=== PATIENT | female | born 1960 | race Caucasian/White ===

== ENCOUNTER → 2016-11-05 | Outpatient (CLI) | payer OTHER, MEDICAID ==
--- NOTE | 2016-11-05 17:08 | DX ---
Chest, PA and Lateral History: Possible sarcoidosis Comparison: None Findings: The patient is obese, which limits detection of interstitial lung disease. There is no foca l infiltrate or consolidation. Heart size and pulmonary vascularity are normal. There is no adenopath y or pulmonary nodule. There is no pleural effusion . Bones are unremarkable for age. Impression: Obesity limits sensitivity. No obvious evidence for sarcoidosis.
--- NOTE | 2016-11-05 18:09 | DX ---
2 Views Cervical Spine Reason for examination: Undifferentiated spondyloarthropathy. Findings: A fracture is not identified. There is mild reversal of the normal cervical curvature. Dege nerative changes are seen with disk space loss in vertebral body osteophytic lipping identified at C5 -C6 and C6-C7. Mild hypertrophic facet changes are also noted. Prevertebral soft tissues appear mariano l. Impression: 1. Degenerative changes with disk space loss and mild facet hypertrophy. 2. Reversal of the cervical curvature may reflect muscle spasm.
--- NOTE | 2016-11-05 18:23 | DX ---
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 Comparison: None available. Findings: Left: Prior ACL repair is noted. No fracture is identified. Alignment is normal. Minimal tricompartme ntal osteoarthritis is present with mild medial and lateral joint space narrowing. Patellar enthesoph yte is present at the insertion of the quadriceps tendon. There is no effusion. Right: No fracture is identified. Alignment is normal. Trace osteoarthritis is present with no signif icant joint space narrowing. There is no effusion. Impression: 1. Mild osteoarthritis in the left knee with medial and lateral joint space narrowing. 2. Minimal osteoarthritis in the right knee.
--- NOTE | 2016-11-05 18:31 | DX ---
Thoracic Spine, 2 views History: Pain, undifferentiated spondyloarthropathy M46.90 Findings: The patient is obese. AP view includes the thoracic spine down to the lower T10. The latera l view courses to the upper lumbar spine. Alignment is anatomic. There is mild thoracic disk space na rrowing between T6 and T10. No compression fracture is identified. Mineralization is normal. No laura nary erosions are identified. The anterior longitudinal ligament is not ossified. The right first rib has been partially resected. Impression: Mild degenerative change. No evidence for ankylosing spondylitis..
--- NOTE | 2016-11-05 18:33 | DX ---
Lumbar spine 2 views History: Undifferentiated spondyloarthropathy. Comparison: Thoracic spine same day. Findings: The study is limited by obesity and soft tissue beam attenuation. Mild leftward curvature o f the lumbar spine is present. AP alignment appears normal. No fracture is identified. Moderate verte bral spondylosis is present at L5-S1, with mild to moderate vertebral spondylosis at L4-L5, and mild vertebral spondylosis throughout the remainder of the lumbar spine. Mild facet hypertrophy is present from L4 through S1. Ventral hernia repair clips are noted. Impression: Limited study with mild to moderate degenerative change, most prominent at L5-S1.
--- NOTE | 2016-11-06 08:46 | DX ---
SI joints, 3 views History: Undifferentiated spondyloarthropathy, M46.90 Comparison: None Findings: There is moderate-severe degenerative narrowing of the L5-S1 disk space associated with a v acuum phenomenon. The SI joints are symmetric and normal. There is degenerative sclerosis and narrowi ng of the pubic symphysis. The hip joints look normal. Impression: 1. No evidence for sacroiliitis 2. Spondylosis L5-S1.
== END ==
LOC: BRMIMAGING 09:24
PROVIDERS: ATTEND Internal Medicine
DX: Z03.89 Encounter for observation for other suspected diseases and conditions ruled out (principal); M47.897 Other spondylosis, lumbosacral region; M51.37 Other intervertebral disc degeneration, lumbosacral region; M51.34 Other intervertebral disc degeneration, thoracic region; M50.322 Other cervical disc degeneration at C5-C6 level; M17.0 Bilateral primary osteoarthritis of knee
CPT/HCPCS: 71020-PO; 72040-PO; 72070-PO; 72100-PO; 72200-PO; 73560-PO